=== PATIENT | male | born 1955 | race Caucasian/White ===

== ENCOUNTER 2016-11-17 10:44 | Emergency (ER) | payer OTHER ==
[~2016-11-17] VITALS: Ht 177.8 cm; Wt 114.3 kg
[~2016-11-17 10:44] MED LIST: ASPIRIN EC81 M1 PO; BACTRIM DS 8001 TAB PO; GEMFIBROZIL600 M1 PO; LEVEMIR FL100 UNIT/1 SC; LIPITOR40 M1 PO; METFORMIN HCL1000 M1 PO; NIACIN 37 MG-501 TAB PO; NOVOLOG100 UNIT/2 SC; POLYTRIM O200 GTT/BO OPH; QUINAPRIL HCL40 M1 PO
--- NOTE | 2016-11-17 11:16 | ED UPPER/LOWER EXTREMITY COMPL ---
History of Present Illness General Chief Complaint: Laceration Procedure Stated Complaint: LAC TO LT THUMB Source: patient Exam Limitations: no limitations Vital Signs & Intake/Output Vital Signs & Intake/Output ED Intake and Output 11/18 0000 11/17 1200 Intake Total Output Total Balance Patient 252 lb Weight Allergies Coded Allergies: NO KNOWN ALLERGIES (09/18/12) Reconcile Medications Aspirin (Ecotrin*) 81 MG TABLET.DR 1 TAB PO DAILY HEART HEALTH (Reported) Atorvastatin Calcium (Lipitor) 40 MG TABLET 1 TAB PO DAILY CHOLESTEROL ( Reported) Augmentin (Augmentin 500-125 Tablet) 500 MG-125 MG TABLET 1 TAB PO BID LACERATION Gemfibrozil 600 MG TABLET 1 TAB PO DAILY CHOLESTEROL (Reported) Insulin Aspart (Novolog) 100 UNIT/ML VIAL 4 U SC 1200 DIABETES (Reported) Insulin Aspart (Novolog) 100 UNIT/ML VIAL 8 U SC QPM DIABETES (Reported) Insulin Detemir (Levemir Flextouch) 100 UNIT/ML (3 ML) INSULN.PEN 26 U SC BID DIABETES (Reported) Metformin HCl 1,000 MG TABLET 1 TAB PO DAILY DIABETES (Reported) Niacin 500 MG TABLET 2 TAB PO DAILY CHOLESTEROL (Reported) Quinapril HCl 40 MG TABLET 1 TAB PO DAILY BP (Reported) Triage Note: PT STATES THAT HE WAS CUTTING A METAL PIPE WITH RAZOR KNIFE WHEN HE SLIPPED CUTTING HIS L THUMB. BANDAGE IN PLACE Triage Nurses Notes Reviewed? yes Onset: Abrupt Duration: constant Timing: single episode today Severity: mild Severity Numbers: 3 HPI: Patient is a 61-year-old male with past medical history of type 2 diabetes who presents emergency and that today while trying to cut a LARGE rubber band with a razor blade he accidentally cut the distal aspect of his left first digit thumb resulting in a laceration with bleeding was controlled prior to arrival. Patient is right arm dominant. Tetanus is unknown (JOSE VITALE) Past History Travel History Traveled to [place] past 21 day No Medical History Any Pertinent Medical History? see below for history Neurological: NONE EENT: NONE Cardiovascular: NONE Respiratory: NONE Gastrointestinal: NONE Hepatic: NONE Renal: NONE Musculoskeletal: NONE Psychiatric: NONE Endocrine: diabetes Surgical History Surgical History: non-contributory Psychosocial History Who do you live with Friend What is your primary language Somali Tobacco Use: Never used ETOH Use: denies use Illicit Drug Use: denies illicit drug use Family History Hx Contributory? No (JOSE VITALE) Review of Systems Review of Systems Constitutional: Reports: no symptoms. EENTM: Reports: no symptoms. Respiratory: Reports: no symptoms. Cardiovascular: Reports: no symptoms. Gastrointestinal/Abdominal: Reports: no symptoms. Genitourinary: Reports: no symptoms. Musculoskeletal: Reports: see HPI, joint pain. Skin: Reports: see HPI. Neurological/Psychological: Reports: no symptoms. Hematologic/Endocrine: Reports: see HPI, bleeding. Immunological: Reports: no symptoms. All Other Systems: Reviewed and Negative (JOSE VITALE) Physical Exam Physical Exam General Appearance: no apparent distress, alert, comfortable Neurologic/Tendon: normal sensation, normal motor functions, normal tendon functions, responds to pain, no evidence tendon injury, no pulse deficit Skin: normal color, warm/dry Comments: Well-developed well-nourished no apparent distress. HEENT: Atraumatic, extraocular motion intact Neck: Supple, no lymphadenopathy Back: Nontender Respiratory: No respiratory distress Neuro: Alert and oriented x3 Psych: Mood affect normal, normal memory normal judgment. Diagram Hands Front 1) 2 cm subcutaneous linear laceration noted full active range of motion noted with flexion extension abduction and adduction full resisted range of motion no tendon deficit no exposed bone no exposed tendon (JOSE VITALE) Progress Differential Diagnosis: arterial insufficiency, compartment syndrome, contusion, dislocation, DVT, fracture, gout, septic arthritis, sprain, tendon injury Plan of Care: No tendon deficit noted on exam. Patient did feel lightheaded after the procedure however the blood pressure was low however he refused to have IV fluid resuscitation administered in the emergency room and wanted to leave. I discussed with patient the importance to improve his blood pressure however he still felt comfortable to leave. Patient will be leaving with his significant other (JOSE VITALE) Departure Departure Disposition: HOME OR SELF CARE Condition: Stable Clinical Impression Primary Impression: Laceration of left thumb Referrals: ALEKSANDRA MAYORGA,CHRISSIE Pabon (PCP/Family) Additional Instructions: As discussed begin to apply bacitracin to the area once a day for the following 4 days. Then leave area dry and clean and open to improve healing. Begin the prescription of Augmentin for infection prevention. Prescription is waiting at [facility] .If symptoms worsen return to the emergency room. Return to emergency room in 7-10 days for suture removal. Keep area dry and clean as YOU can. Departure Forms: Customer Survey Employee [employer] General Discharge Information Prescriptions: Current Visit Scripts Augmentin (Augmentin 500-125 Tablet) 1 TAB PO BID #14 TAB (JOSE VITALE) PA/LABORER/GRADE CHECK Co-Sign Statement Statement: ED Attending supervision documentation- [] I saw and evaluated the patient. I have also reviewed all the pertinent lab results and diagnostic results. I agree with the findings and the plan of care as documented in the PA's/LABORER/GRADE CHECK's documentation. [X] I have reviewed the ED Record and agree with the PA's/LABORER/GRADE CHECK's documentation. [] Additions or exceptions (if any) to the PAs/LABORER/GRADE CHECK's note and plan are summarized below: [] (VISHAL MAYORGA,CHINO) Procedures Laceration/Wound Repair Laceration/Wound Repair: Wound Location: upper extremity (LEFT 1ST DIGIT) Wound's Depth, Shape: linear, subcutaneous Wound Length (cm): 2 Wound Explored: clean, no foreign body removed, irrigated extensively Irrigated w/ Saline (ccs): 500 Betadine Prep? Yes Anesthesia: 1% lidocaine Volume Anesthetic (ccs): 5 Wound Repaired With: sutures Suture Size/Type: 5:0 Number of Sutures: 6 Progress: Patient's on initial examination of the laceration does show GREASE AND DIRT IN WHICH I significantly scrubbed the edges with chlorhexidine prior to administration of the sterile technique of Betadine Margins were revised after suture placement patient tolerated well bacitracin and bandage was applied (JOSE VITALE)
[2016-11-17] MEDS ORDERED: NIACIN500 M7 PO (11:28)
[2016-11-17] MEDS ORDERED: AUGMENTIN 500-1 EACH PO (12:19)
[2016-11-17 12:31] VITALS: BP 103/58
== END 2016-11-17 12:33 ==
LOC: ERH 10:44
DX: S61.012A Laceration without foreign body of left thumb without damage to nail, initial encounter (principal); W45.8XXA Other foreign body or object entering through skin, initial encounter; Y93.89 Activity, other specified; Y92.9 Unspecified place or not applicable
CPT/HCPCS: 90471; 90714

== ENCOUNTER 2016-11-25 05:07 | Emergency (ER) | payer OTHER ==
[~2016-11-25] VITALS: Ht 177.8 cm; Wt 85.3 kg
[~2016-11-25 05:07] MED LIST changes: +AUGMENTIN 500-1 EACH PO; +NIACIN500 M7 PO
[2016-11-25 05:14] VITALS: BP 133/70
--- NOTE | 2016-11-25 05:17 | ED ANIMAL BITE/WOUND CHECK ---
History of Present Illness General Chief Complaint: Suture Removal/Wound Recheck Stated Complaint: SUTURE REMOVAL Source: patient, old records Exam Limitations: no limitations Vital Signs & Intake/Output Vital Signs & Intake/Output Vital Signs Date Time Temp Pulse Resp B/P B/P Pulse O2 O2 Flow FiO2 Mean Ox Delivery Rate 11/25 0514 96.6 64 18 133/70 96 Room Air Allergies Coded Allergies: NO KNOWN ALLERGIES (09/18/12) Reconcile Medications Aspirin (Ecotrin*) 81 MG TABLET.DR 1 TAB PO DAILY HEART HEALTH (Reported) Atorvastatin Calcium (Lipitor) 40 MG TABLET 1 TAB PO DAILY CHOLESTEROL ( Reported) Augmentin (Augmentin 500-125 Tablet) 500 MG-125 MG TABLET 1 TAB PO BID LACERATION Gemfibrozil 600 MG TABLET 1 TAB PO DAILY CHOLESTEROL (Reported) Insulin Aspart (Novolog) 100 UNIT/ML VIAL 4 U SC 1200 DIABETES (Reported) Insulin Aspart (Novolog) 100 UNIT/ML VIAL 8 U SC QPM DIABETES (Reported) Insulin Detemir (Levemir Flextouch) 100 UNIT/ML (3 ML) INSULN.PEN 26 U SC BID DIABETES (Reported) Metformin HCl 1,000 MG TABLET 1 TAB PO DAILY DIABETES (Reported) Niacin 500 MG TABLET 2 TAB PO DAILY CHOLESTEROL (Reported) Quinapril HCl 40 MG TABLET 1 TAB PO DAILY BP (Reported) Triage Nurses Notes Reviewed? yes HPI: Patient presents for suture removal for laceration to his left thumb. Sutures were placed 8 days ago. No complaints. There is no pain. There are no fevers or chills. There is no redness. There is no pus drainage. Past History Travel History Traveled to [place] past 21 day No Medical History Any Pertinent Medical History? see below for history Neurological: NONE EENT: NONE Cardiovascular: NONE Respiratory: NONE Gastrointestinal: NONE Hepatic: NONE Renal: NONE Musculoskeletal: NONE Psychiatric: NONE Endocrine: diabetes Tetanus Vaccine: 11/17/16 Surgical History Surgical History: non-contributory Psychosocial History Who do you live with Friend What is your primary language Slovenian Tobacco Use: Never used ETOH Use: occasional use Illicit Drug Use: denies illicit drug use Family History Hx Contributory? No Review of Systems Review of Systems Constitutional: Reports: no symptoms. Respiratory: Reports: no symptoms. Cardiovascular: Reports: no symptoms. GI: Reports: no symptoms. Musculoskeletal: Reports: no symptoms. Neurological/Psychological: Reports: no symptoms. Immunologic/Allergic: Reports: no symptoms. Physical Exam Physical Exam General Appearance: well developed/nourished, alert, awake Eyes: Bilateral: PERRL, EOMI. Neck: normal inspection, supple Respiratory: normal breath sounds, chest non-tender, no respiratory distress, lungs clear Neurologic/Psych: no motor/sensory deficits, awake, alert, oriented x 3, normal gait, normal mood/affect Progress Differential Diagnosis: SUTURES ARE NOT READY FOR REMOVAL Plan of Care: Return in 5 days. Departure Departure Disposition: HOME OR SELF CARE Condition: Stable Clinical Impression Primary Impression: Visit for wound check Referrals: CHRISSIE LAKE MD (PCP/Family) Additional Instructions: THE SUTURES ARE NOT READY TO BE REMOVED YET. RETURN IN 5 DAYS FOR RE-EVAL OR SOONER FOR ANY CONCERNS Departure Forms: Customer Survey General Discharge Information
== END 2016-11-25 05:30 ==
LOC: ERH 05:07
DX: Z48.01 Encounter for change or removal of surgical wound dressing (principal)
CPT/HCPCS: 99281

== ENCOUNTER 2016-11-30 05:08 | Emergency (ER) | payer OTHER ==
[~2016-11-30] VITALS: Ht 182.9 cm; Wt 113.4 kg
[2016-11-30 05:16] VITALS: BP 141/71
--- NOTE | 2016-11-30 05:28 | ED UPPER/LOWER EXTREMITY COMPL ---
History of Present Illness General Chief Complaint: Suture Removal/Wound Recheck Stated Complaint: " SUTURE REMOVAL LT THUMB" Source: patient Exam Limitations: no limitations Vital Signs & Intake/Output Vital Signs & Intake/Output Vital Signs Date Time Temp Pulse Resp B/P B/P Pulse O2 O2 Flow FiO2 Mean Ox Delivery Rate 11/30 0516 97.2 58 18 141/71 95 Room Air Allergies Coded Allergies: NO KNOWN ALLERGIES (09/18/12) Reconcile Medications Aspirin (Ecotrin*) 81 MG TABLET.DR 1 TAB PO DAILY HEART HEALTH (Reported) Atorvastatin Calcium (Lipitor) 40 MG TABLET 1 TAB PO DAILY CHOLESTEROL ( Reported) Augmentin (Augmentin 500-125 Tablet) 500 MG-125 MG TABLET 1 TAB PO BID LACERATION Gemfibrozil 600 MG TABLET 1 TAB PO DAILY CHOLESTEROL (Reported) Insulin Aspart (Novolog) 100 UNIT/ML VIAL 4 U SC 1200 DIABETES (Reported) Insulin Aspart (Novolog) 100 UNIT/ML VIAL 8 U SC QPM DIABETES (Reported) Insulin Detemir (Levemir Flextouch) 100 UNIT/ML (3 ML) INSULN.PEN 26 U SC BID DIABETES (Reported) Metformin HCl 1,000 MG TABLET 1 TAB PO DAILY DIABETES (Reported) Niacin 500 MG TABLET 2 TAB PO DAILY CHOLESTEROL (Reported) Quinapril HCl 40 MG TABLET 1 TAB PO DAILY BP (Reported) Triage Note: PT TO ED FOR SUTURE REMOVAL. PT STATES SUTURES WERE PLACED HERE 2 WEEKS AGO AFTER SLICING FINGER. PT STATES HE CAME BACK 5 DAYS AGO FOR SUTURE REMOVAL BUT WERE TOLD THEY WERE NOT READY TO COME OUT. Triage Nurses Notes Reviewed? yes Onset: Abrupt Duration: week(s): Timing: recent history Severity: mild Pain/Injury Location: Left: 1st finger. Method of Injury: incised Modifying Factors: Improves With: rest. Associated Symptoms: "it feels fine." HPI: 61 yo gentleman presents for suture removal of his left thumb. He notes that he cut it accidently approximately 2 weeks ago. He came several days ago to have the sutures removed but was told that the wound had not yet healed. He notes that his thumb feels fine, is not red or swollen. He is able to move it without problem. He is otherwise well. Past History Travel History Traveled to [place] past 21 day No Medical History Any Pertinent Medical History? see below for history Neurological: NONE EENT: NONE Cardiovascular: NONE Respiratory: NONE Gastrointestinal: NONE Hepatic: NONE Renal: NONE Musculoskeletal: NONE Psychiatric: NONE Endocrine: diabetes Tetanus Vaccine: 11/17/16 Surgical History Surgical History: non-contributory Psychosocial History Who do you live with Friend What is your primary language Khmer Tobacco Use: Current Not Daily Family History Hx Contributory? No Review of Systems Review of Systems Constitutional: Reports: no symptoms. EENTM: Reports: no symptoms. Respiratory: Reports: no symptoms. Cardiovascular: Reports: no symptoms. Gastrointestinal/Abdominal: Reports: no symptoms. Genitourinary: Reports: no symptoms. Musculoskeletal: Reports: no symptoms. Skin: Reports: no symptoms. Neurological/Psychological: Reports: no symptoms. Hematologic/Endocrine: Reports: no symptoms. Immunological: Reports: no symptoms. All Other Systems: Reviewed and Negative Physical Exam Physical Exam General Appearance: well developed/nourished, mild distress Head: atraumatic Hand Left: thumb with well healed laceration, slightly dehisced, with thick skin. no discharge. no sign of infection. Progress Differential Diagnosis: SUTURE REMOVAL Plan of Care: sutures removed without problem by md. Departure Departure Disposition: HOME OR SELF CARE Condition: Stable Clinical Impression Primary Impression: Finger laceration Secondary Impressions: Visit for suture removal Referrals: ALEKSANDRA MAYORGA,CHRISSIE Pabon (PCP/Family) Departure Forms: Customer Survey General Discharge Information
== END 2016-11-30 05:41 ==
LOC: ERH 05:08
DX: S61.012A Laceration without foreign body of left thumb without damage to nail, initial encounter (principal); W45.8XXA Other foreign body or object entering through skin, initial encounter; Y92.9 Unspecified place or not applicable; Y93.9 Activity, unspecified
CPT/HCPCS: 99281